=== PATIENT | female | born 1985 | race African-American/Black ===

== ENCOUNTER 2016-04-07 19:52 | Emergency (ER) | payer OTHER ==
[~2016-04-07] VITALS: Ht 165.1 cm; Wt 131.5 kg
[~2016-04-07 19:52] MED LIST: ANTIVERT25 MG PO; ATARAX,VISTARIL25 MG PO; ATENOLOL50 MG PO; CIPRO500 MG PO; CLEOCIN300 MG PO; CLINDAMYCIN HC300 MG PO; DICLEGIS DR 101 EACH PO; DOCUSATE SODIU100 MG PO; ELIMITE 5% CREA60 GM TP; ENDOCET 5-3251 EACH PO; FORTAMET1000 M1 PO; HAIR, SKIN & N1 EAC1 PO; HUMALOG100 UNIT/2 SC; HUMULIN N100 UNIT/2 SC; HYDROCHLOROTH12.5 M3 PO; IBUPROFEN800 MG PO; KEFLEX500 MG PO; LABETALOL HCL200 MG PO; LABETALOL HCL300 MG PO; LEVAQUIN250 MG PO; LORTAB 5-325 M1 EACH PO; MACROBID100 MG PO; METFORMIN HCL1000 MG PO; METFORMIN HCL500 M1 PO; METHYLDOPA500 MG PO; MICROZIDE12.5 M1 PO; NORCO 5/3251 TABLET PO; NOVOLIN N100 UNITS/ SC; NOVOLIN N100 UNITS/ SQ; NOVOLOG 10100 UNITS/ SC; NOVOLOG PE100 UNITS/ SC; PRENATAL TABLE1 EAC3 PO; PROAIR HFA8.5 GM IH; PROMETHAZINE HC25 M1 PO; PROVENTIL HFA6.7 GM IH; PROVENTIL2.5 MG/3 M IH; REGLAN5 MG PO; TENORMIN50 MG PO; UNISOM SLEEP AI25 MG PO; VENTOLIN HFA18 GM IH; VITAMIN B-625 MG PO; ZITHROMAX Z-PA250 MG PO; ZOFRAN ODT4 MG PO; ZOFRAN4 MG PO
[2016-04-07] MEDS ORDERED: ATIVAN1 MG PO (20:36)
[2016-04-07 21:28] VITALS: BP 165/98
== END 2016-04-07 21:29 | disposition home or self-care (01) ==
LOC: EME 19:52
DX: F41.9 Anxiety disorder, unspecified (principal); F43.0 Acute stress reaction; I10 Essential (primary) hypertension; E11.9 Type 2 diabetes mellitus without complications
CPT/HCPCS: 99281; 99283

== ENCOUNTER 2016-04-29 23:46 | Emergency (ER) | payer OTHER ==
[~2016-04-29] VITALS: Ht 165.1 cm; Wt 135.2 kg
[~2016-04-29 23:46] MED LIST changes: +ATIVAN1 MG PO
[2016-04-30 00:31] LABS: HEMATOCRIT 38.6 % (36.0-46.0); MCHC 33.7 G/DL (30.0-36.0); MCV 88.9 FL (83-99); MEAN PLAT.VOLUME 10.5 uM^3 (9.5-12.4); PLATELET COUNT 259 K/uL (156-360); RBC DIS.WIDTH-CV 13.6 % (11.8-14.6); RED BLOOD COUNT 4.34 M/uL (3.80-5.20); WHITE BLOOD COUNT 14.9 K/uL (4.1-10.2)
[2016-04-30 00:35] LABS: EOSINOPHIL (%) 0.7 % (0-5); EOSINOPHIL COUNT 0.1 K/uL (0-0.3); IMMATURE GRANULOCYTE (%) 0.3 % (0.0-0.7); IMMATURE GRANULOCYTE COUNT 0.4 K/uL; LYMPHOCYTE COUNT 4.7 K/uL (1.0-2.8); MONOCYTE (%) 6.7 % (3-12); NEUTROPHIL (%) 60.9 % (45-76); NEUTROPHIL COUNT 9.1 K/uL (1.8-6.4)
[2016-04-30 00:48] LABS: CHLORIDE 104 mEq/L (99-109); POTASSIUM 3.8 mEq/L (3.7-5.4); SODIUM 138 mEq/L (136-147)
[2016-04-30 00:50] LABS: GLUCOSE 176 mg/dL (70-99)
[2016-04-30 00:51] LABS: ANION GAP 11 MEQ/L (2-14)
[2016-04-30 00:52] LABS: TOTAL BILIRUBIN 0.8 mg/dL (0.0-1.0)
[2016-04-30 00:53] LABS: ALKALINE PHOSPHATASE 90 IU/L (3-129)
[2016-04-30 00:54] LABS: GFR ESTIMATE (CALCULATED) > 59 mL/min/
[2016-04-30 00:55] LABS: UREA NITROGEN (BUN) 11 mg/dL (9-23)
[2016-04-30 00:57] LABS: CREATINE KINASE 321 IU/L (1-294); LIPASE 26 U/L (1.0-51.0); TROP-I INTERPRETATION NEGATIVE; TROPONIN-I < 0.01 ng/mL (0.0-0.30)
[2016-04-30 01:41] LABS: C DIFF TOXIN NEGATIVE (NEGATIVE)
[2016-04-30 01:44] LABS: PROBE CHECK PASS; SPECIMEN PROCESSING CONTROL PASS
[2016-04-30 01:59] LABS: ADD MIUA? YES; BILIRUBIN NEGATIVE; BLOOD MODERATE; COLOR YELLOW ((YELLOW)); GLUCOSE (STRIP) NEGATIVE; KETONES NEGATIVE; LEUKOCYTES TRACE; NITRITE NEGATIVE; PROTEIN (STRIP) 30; UROBILINOGEN 0.2 MG/DL (0.2-1.0)
[2016-04-30 02:17] LABS: BACTERIA 1+ /HPF; EPITHELIAL CELLS 1+ /HPF; MUCUS NONE SEEN /LPF
[2016-04-30 02:18] LABS: CALCIUM OXALATE CRYSTALS 2+ /HPF; CASTS PRESENT /LPF; CRYSTALS PRESENT; HYALINE CASTS RARE /LPF
[2016-04-30] MEDS ORDERED: FLAGYL500 MG PO (02:18)
[2016-04-30] MEDS ORDERED: CIPRO500 MG PO (02:18)
[2016-04-30] MEDS ORDERED: BENTYL20 MG PO (02:21)
[2016-04-30] MEDS ORDERED: XANAX0.5 MG PO (02:25)
[2016-04-30 02:45] VITALS: BP 128/74
== END 2016-04-30 03:11 | disposition home or self-care (01) ==
LOC: EME 23:46
PROVIDERS: Emergency Medicine
DX: K52.9 Noninfective gastroenteritis and colitis, unspecified (principal); N39.0 Urinary tract infection, site not specified; R19.7 Diarrhea, unspecified; E86.0 Dehydration; F41.1 Generalized anxiety disorder; E11.9 Type 2 diabetes mellitus without complications; I10 Essential (primary) hypertension; E78.5 Hyperlipidemia, unspecified; Z79.84 Long term (current) use of oral hypoglycemic drugs; Z88.0 Allergy status to penicillin; Z91.040 Latex allergy status
CPT/HCPCS: 71010; 74176; 80053; 81003; 82550; 83690; 84484; 85025; 87493; 87506; 93005; 99281; 99285; J2405; J3010; J7030; S0028

== ENCOUNTER 2016-06-04 13:49 | Emergency (ER) | payer OTHER ==
[~2016-06-04] VITALS: Ht 165.1 cm; Wt 134.9 kg
[~2016-06-04 13:49] MED LIST changes: +BENTYL20 MG PO; +FLAGYL500 MG PO; +XANAX0.5 MG PO
[2016-06-04 15:13] LABS: HEMATOCRIT 39.5 % (36.0-46.0); MCH 29.5 PG (29.0-34.0); MCHC 32.7 G/DL (30.0-36.0); MCV 90.2 FL (83-99); MEAN PLAT.VOLUME 10.2 uM^3 (9.5-12.4); PLATELET COUNT 281 K/uL (156-360); RBC DIS.WIDTH-SD 42.8 % (39-53); RED BLOOD COUNT 4.38 M/uL (3.80-5.20); WHITE BLOOD COUNT 12.6 K/uL (4.1-10.2)
[2016-06-04 15:26] LABS: CHLORIDE 104 mEq/L (99-109); POTASSIUM 3.9 mEq/L (3.7-5.4); SODIUM 137 mEq/L (136-147)
[2016-06-04 15:28] LABS: GLUCOSE 131 mg/dL (70-99)
[2016-06-04 15:29] LABS: ANION GAP 8 MEQ/L (2-14)
[2016-06-04 15:30] LABS: TOTAL BILIRUBIN 0.8 mg/dL (0.0-1.0)
[2016-06-04 15:31] LABS: ALKALINE PHOSPHATASE 69 IU/L (3-129)
[2016-06-04 15:32] LABS: GFR ESTIMATE (CALCULATED) > 59 mL/min/
[2016-06-04 15:33] LABS: UREA NITROGEN (BUN) 10 mg/dL (9-23)
[2016-06-04 15:40] LABS: QUANTITATIVE HCG < 4.0 MIU/ML
[2016-06-04 15:52] LABS: ADD MIUA? YES; BILIRUBIN NEGATIVE; BLOOD LARGE; COLOR YELLOW ((YELLOW)); GLUCOSE (STRIP) NEGATIVE; KETONES NEGATIVE; LEUKOCYTES TRACE; NITRITE NEGATIVE; PROTEIN (STRIP) 30; SPECIFIC GRAVITY 1.023 (1.000-1.030); UROBILINOGEN 0.2 MG/DL (0.2-1.0)
[2016-06-04 16:00] LABS: BACTERIA NONE SEEN /HPF; EPITHELIAL CELLS 1+ /HPF; MUCUS TRACE /LPF; RED BLOOD CELLS 30-40 /HPF (0-5)
[2016-06-04] MEDS ORDERED: MECLIZINE HCL25 MG PO (16:42)
[2016-06-04] MEDS ORDERED: MOTRIN600 MG PO (16:42)
[2016-06-04 17:04] VITALS: BP 148/80
== END 2016-06-04 17:05 | disposition home or self-care (01) ==
LOC: EME 13:49
PROVIDERS: Nurse Practitioner Family
DX: R42 Dizziness and giddiness (principal); R55 Syncope and collapse; E11.65 Type 2 diabetes mellitus with hyperglycemia; F43.9 Reaction to severe stress, unspecified; E78.5 Hyperlipidemia, unspecified; I10 Essential (primary) hypertension; Z79.84 Long term (current) use of oral hypoglycemic drugs
CPT/HCPCS: 80053; 81003; 84702; 85027; 93005; 99281; 99284

== ENCOUNTER 2016-07-01 15:18 | Emergency (ER) | payer OTHER ==
[~2016-07-01] VITALS: Ht 165.1 cm; Wt 137.6 kg
[~2016-07-01 15:18] MED LIST changes: +MECLIZINE HCL25 MG PO; +MOTRIN600 MG PO
[2016-07-01 16:30] LABS: EOSINOPHIL (%) 0.5 % (0-5); EOSINOPHIL COUNT 0.1 K/uL (0-0.3); HEMATOCRIT 35.6 % (36.0-46.0); IMMATURE GRANULOCYTE (%) 0.4 % (0.0-0.7); IMMATURE GRANULOCYTE COUNT 0.1 K/uL; INSTRUMENT ABS NEUTROPHIL CT 8.7 K/uL; LYMPHOCYTE COUNT 2.2 K/uL (1.0-2.8); MCH 29.8 PG (29.0-34.0); MCHC 33.4 G/DL (30.0-36.0); MCV 89.2 FL (83-99); MEAN PLAT.VOLUME 10.4 uM^3 (9.5-12.4); MONOCYTE (%) 5.7 % (3-12); MONOCYTE COUNT 0.7 K/uL (0-0.8); NEUTROPHIL (%) 74.7 % (45-76); NEUTROPHIL COUNT 8.7 K/uL (1.8-6.4); PLATELET COUNT 234 K/uL (156-360); RBC DIS.WIDTH-CV 12.9 % (11.8-14.6); RED BLOOD COUNT 3.99 M/uL (3.80-5.20); WHITE BLOOD COUNT 11.7 K/uL (4.1-10.2)
[2016-07-01 16:41] LABS: CHLORIDE 107 mEq/L (99-109); POTASSIUM 3.9 mEq/L (3.7-5.4); SODIUM 139 mEq/L (136-147)
[2016-07-01 16:43] LABS: GLUCOSE 99 mg/dL (70-99)
[2016-07-01 16:44] LABS: ANION GAP 11 MEQ/L (2-14)
[2016-07-01 16:45] LABS: TOTAL BILIRUBIN 0.5 mg/dL (0.0-1.0)
[2016-07-01 16:46] LABS: ALKALINE PHOSPHATASE 71 IU/L (3-129)
[2016-07-01 16:47] LABS: GFR ESTIMATE (CALCULATED) > 59 mL/min/
[2016-07-01 16:48] LABS: UREA NITROGEN (BUN) 8 mg/dL (9-23)
[2016-07-01 16:52] LABS: TROP-I INTERPRETATION NEGATIVE; TROPONIN-I < 0.01 ng/mL (0.0-0.30)
[2016-07-01 16:56] LABS: QUANTITATIVE HCG < 4.0 MIU/ML
[2016-07-01 18:31] LABS: ADD MIUA? YES; BILIRUBIN NEGATIVE; BLOOD LARGE; COLOR YELLOW ((YELLOW)); GLUCOSE (STRIP) NEGATIVE; KETONES NEGATIVE; LEUKOCYTES NEGATIVE; NITRITE NEGATIVE; PROTEIN (STRIP) 30; SPECIFIC GRAVITY 1.017 (1.000-1.030); UROBILINOGEN 0.2 MG/DL (0.2-1.0)
[2016-07-01 19:03] LABS: BACTERIA RARE /HPF; EPITHELIAL CELLS 2+ /HPF; MUCUS TRACE /LPF; RED BLOOD CELLS 0-5 /HPF (0-5)
[2016-07-01] MEDS ORDERED: ATIVAN0.5 MG PO (19:41)
[2016-07-01] MEDS ORDERED: CIPRO500 MG PO (19:41)
[2016-07-01 20:02] VITALS: BP 136/87
== END 2016-07-01 20:03 | disposition home or self-care (01) ==
LOC: EME 15:18
PROVIDERS: Emergency Medicine
DX: N39.0 Urinary tract infection, site not specified (principal); E86.0 Dehydration; F41.9 Anxiety disorder, unspecified; J45.909 Unspecified asthma, uncomplicated; E78.5 Hyperlipidemia, unspecified; I10 Essential (primary) hypertension; E11.9 Type 2 diabetes mellitus without complications; Z79.84 Long term (current) use of oral hypoglycemic drugs
CPT/HCPCS: 80053; 81003; 84484; 84702; 85025; 93005; 99281; 99285; J7030

== ENCOUNTER 2016-08-22 03:09 | Emergency (ER) | payer OTHER ==
[~2016-08-22] VITALS: Ht 165.1 cm; Wt 135.0 kg
[~2016-08-22 03:09] MED LIST changes: +ATIVAN0.5 MG PO
[2016-08-22 03:46] LABS: ADD MIUA? YES; BILIRUBIN NEGATIVE; BLOOD NEGATIVE; COLOR YELLOW ((YELLOW)); GLUCOSE (STRIP) NEGATIVE; KETONES NEGATIVE; LEUKOCYTES TRACE; NITRITE NEGATIVE; PROTEIN (STRIP) 100; SPECIFIC GRAVITY 1.028 (1.000-1.030); UROBILINOGEN 0.2 MG/DL (0.2-1.0)
[2016-08-22 04:06] LABS: BACTERIA NONE SEEN /HPF; EPITHELIAL CELLS 1+ /HPF; MUCUS 1+ /LPF; RED BLOOD CELLS 0-5 /HPF (0-5); UCUL ADDED? NO; WHITE BLOOD CELLS 15-20 /HPF (0-5)
[2016-08-22 04:07] LABS: HEMATOCRIT 36.9 % (36.0-46.0); MCH 29.6 PG (29.0-34.0); MCHC 33.1 G/DL (30.0-36.0); MCV 89.6 FL (83-99); MEAN PLAT.VOLUME 10.1 uM^3 (9.5-12.4); PLATELET COUNT 254 K/uL (156-360); RBC DIS.WIDTH-CV 13.2 % (11.8-14.6); RBC DIS.WIDTH-SD 43.4 % (39-53); RED BLOOD COUNT 4.12 M/uL (3.80-5.20); WHITE BLOOD COUNT 12.8 K/uL (4.1-10.2)
[2016-08-22 04:19] LABS: CHLORIDE 105 mEq/L (99-109); POTASSIUM 3.8 mEq/L (3.7-5.4); SODIUM 138 mEq/L (136-147)
[2016-08-22 04:21] LABS: GLUCOSE 138 mg/dL (70-99)
[2016-08-22 04:22] LABS: ANION GAP 9 MEQ/L (2-14)
[2016-08-22 04:23] LABS: TOTAL BILIRUBIN 0.5 mg/dL (0.0-1.0)
[2016-08-22 04:24] LABS: ALKALINE PHOSPHATASE 68 IU/L (3-129)
[2016-08-22 04:25] LABS: GFR ESTIMATE (CALCULATED) > 59 mL/min/
[2016-08-22 04:26] LABS: UREA NITROGEN (BUN) 8 mg/dL (9-23)
[2016-08-22 04:28] LABS: LIPASE 42 U/L (1.0-51.0)
[2016-08-22 04:34] LABS: QUANTITATIVE HCG < 4.0 MIU/ML
[2016-08-22] MEDS ORDERED: MACROBID100 MG PO (04:56)
[2016-08-22] MEDS ORDERED: ZOFRAN ODT4 MG PO (04:56)
[2016-08-22] MEDS ORDERED: NORCO 5/3251 TABLET PO (05:11)
[2016-08-22 05:16] VITALS: BP 138/98
== END 2016-08-22 05:19 | disposition home or self-care (01) ==
LOC: EME 03:09
PROVIDERS: Physician Assistant
DX: N39.0 Urinary tract infection, site not specified (principal); R19.7 Diarrhea, unspecified; N20.0 Calculus of kidney; K76.0 Fatty (change of) liver, not elsewhere classified; M51.26 Other intervertebral disc displacement, lumbar region; I10 Essential (primary) hypertension; E11.9 Type 2 diabetes mellitus without complications; Z79.84 Long term (current) use of oral hypoglycemic drugs; Z88.0 Allergy status to penicillin
CPT/HCPCS: 74176; 80053; 81003; 83690; 84702; 85027; 99281; 99285; J2270; J2405; J7030

== ENCOUNTER 2016-10-03 23:42 | Emergency (ER) | payer OTHER ==
[~2016-10-03] VITALS: Ht 165.1 cm; Wt 134.1 kg
[2016-10-04] MEDS ORDERED: HYDROCHLOROTH12.5 M3 PO (00:46)
[2016-10-04] MEDS ORDERED: JANUVIA100 MG PO (00:46)
[2016-10-04] MEDS ORDERED: ATARAX,VISTARIL25 MG PO (00:48)
[2016-10-04] MEDS ORDERED: PERCOCET 5/31 TABLET PO (01:45)
[2016-10-04] MEDS ORDERED: NAPROSYN500 MG PO (01:45)
[2016-10-04 02:29] VITALS: BP 128/89
== END 2016-10-04 02:32 | disposition home or self-care (01) ==
LOC: EME 23:42
DX: S93.401A Sprain of unspecified ligament of right ankle, initial encounter (principal); W10.9XXA Fall (on) (from) unspecified stairs and steps, initial encounter; I10 Essential (primary) hypertension; J45.909 Unspecified asthma, uncomplicated; E78.5 Hyperlipidemia, unspecified; E11.9 Type 2 diabetes mellitus without complications; Z79.84 Long term (current) use of oral hypoglycemic drugs; Z88.0 Allergy status to penicillin
CPT/HCPCS: 73610; 99281; 99283

== ENCOUNTER 2016-11-08 11:03 | Emergency (ER) | payer OTHER ==
[~2016-11-08] VITALS: Ht 165.1 cm; Wt 132.8 kg
[~2016-11-08 11:03] MED LIST changes: +JANUVIA100 MG PO; +NAPROSYN500 MG PO; +PERCOCET 5/31 TABLET PO
[2016-11-08 13:33] VITALS: BP 153/111
== END 2016-11-08 13:34 | disposition home or self-care (01) ==
LOC: EME 11:03
DX: R21 Rash and other nonspecific skin eruption (principal); L29.9 Pruritus, unspecified; J02.9 Acute pharyngitis, unspecified; I10 Essential (primary) hypertension
CPT/HCPCS: 99281; 99283

== ENCOUNTER 2017-03-29 19:11 | Emergency (ER) | payer OTHER ==
[~2017-03-29] VITALS: Ht 165.1 cm; Wt 136.2 kg
[2017-03-29 20:14] LABS: APPEARANCE CLOUDY ((CLEAR)); BILIRUBIN NEGATIVE; BLOOD NEGATIVE; COLOR YELLOW ((YELLOW)); GLUCOSE (STRIP) NEGATIVE; KETONES NEGATIVE; LEUKOCYTES TRACE; NITRITE NEGATIVE; PROTEIN (STRIP) 30; SPECIFIC GRAVITY 1.023 (1.000-1.030); UROBILINOGEN 0.2 MG/DL (0.2-1.0)
[2017-03-29 20:16] LABS: HEMATOCRIT 39.4 % (36.0-46.0); HEMOGLOBIN 13.5 G/DL (11.9-15.5); MCH 30.5 PG (29.0-34.0); MCHC 34.3 G/DL (30.0-36.0); MCV 89.1 FL (83-99); PLATELET COUNT 258 K/uL (156-360); RBC DIS.WIDTH-CV 12.8 % (11.8-14.6); RBC DIS.WIDTH-SD 41.8 % (39-53); RED BLOOD COUNT 4.42 M/uL (3.80-5.20); WHITE BLOOD COUNT 14.5 K/uL (4.1-10.2)
[2017-03-29 20:30] LABS: ALBUMIN 4.3 g/dL (3.2-4.8); CHLORIDE 106 mEq/L (99-109); POTASSIUM 4.1 mEq/L (3.7-5.4); SODIUM 138 mEq/L (136-147)
[2017-03-29 20:32] LABS: GLUCOSE 107 mg/dL (70-99); TOTAL PROTEIN 8.4 g/dL (6.4-8.3)
[2017-03-29 20:34] LABS: TOTAL BILIRUBIN 0.9 mg/dL (0.0-1.0)
[2017-03-29 20:36] LABS: ALKALINE PHOSPHATASE 77 IU/L (3-129); CREATININE 0.8 mg/dL (0.6-1.3); GFR ESTIMATE (CALCULATED) > 59 mL/min/
[2017-03-29 20:37] LABS: UREA NITROGEN (BUN) 9 mg/dL (9-23)
[2017-03-29 20:38] LABS: AST (GOT) 24 IU/L (2-34)
[2017-03-29 20:39] LABS: ALT (GPT) 27 IU/L (3-49)
[2017-03-29 20:48] LABS: QUANTITATIVE HCG < 4.0 MIU/ML
[2017-03-29 20:53] LABS: BACTERIA RARE /HPF; EPITHELIAL CELLS 4+ /HPF; MUCUS 1+ /LPF; RED BLOOD CELLS 0-5 /HPF (0-5); UCUL ADDED? YES
[2017-03-29] MEDS ORDERED: ZOFRAN ODT4 MG PO (22:55)
[2017-03-29 22:59] VITALS: BP 142/113
== END 2017-03-29 23:05 | disposition home or self-care (01) ==
LOC: EME 19:11
DX: R10.9 Unspecified abdominal pain (principal); E11.9 Type 2 diabetes mellitus without complications; Z79.84 Long term (current) use of oral hypoglycemic drugs; E78.5 Hyperlipidemia, unspecified; I10 Essential (primary) hypertension; J45.909 Unspecified asthma, uncomplicated; Z88.0 Allergy status to penicillin; Z88.1 Allergy status to other antibiotic agents; Z91.040 Latex allergy status
CPT/HCPCS: 80053; 81003; 84702; 85027; 87086 GA; 99281; 99284

== ENCOUNTER 2017-07-12 17:22 | Emergency (ER) | payer OTHER ==
[~2017-07-12] VITALS: Ht 165.1 cm; Wt 136.5 kg
[2017-07-12 19:26] LABS: HEMATOCRIT 42.5 % (36.0-46.0); HEMOGLOBIN 14.6 G/DL (11.9-15.5); MCH 30.8 PG (29.0-34.0); MCHC 34.4 G/DL (30.0-36.0); MCV 89.7 FL (83-99); PLATELET COUNT 279 K/uL (156-360); RBC DIS.WIDTH-CV 12.7 % (11.8-14.6); RBC DIS.WIDTH-SD 41.5 % (39-53); RED BLOOD COUNT 4.74 M/uL (3.80-5.20); WHITE BLOOD COUNT 15.2 K/uL (4.1-10.2)
[2017-07-12 19:35] LABS: ALBUMIN 4.3 g/dL (3.2-4.8); CHLORIDE 103 mEq/L (99-109); POTASSIUM 3.9 mEq/L (3.7-5.4); SODIUM 140 mEq/L (136-147)
[2017-07-12 19:37] LABS: GLUCOSE 170 mg/dL (70-99)
[2017-07-12 19:39] LABS: TOTAL BILIRUBIN 0.6 mg/dL (0.0-1.0)
[2017-07-12 19:41] LABS: ALKALINE PHOSPHATASE 92 IU/L (3-129); CREATININE 0.9 mg/dL (0.6-1.3); GFR ESTIMATE (CALCULATED) > 59 mL/min/
[2017-07-12 19:42] LABS: AST (GOT) 31 IU/L (2-34); UREA NITROGEN (BUN) 12 mg/dL (9-23)
[2017-07-12 19:43] LABS: DIRECT BILIRUBIN 0.2 mg/dL (0.0-0.3)
[2017-07-12 19:44] LABS: ALT (GPT) 43 IU/L (3-49); LIPASE 30 U/L (1.0-51.0)
[2017-07-12 19:55] LABS: QUANTITATIVE HCG < 4.0 MIU/ML
[2017-07-12 20:01] LABS: APPEARANCE SL.HAZY ((CLEAR)); BILIRUBIN NEGATIVE; BLOOD LARGE; COLOR YELLOW ((YELLOW)); GLUCOSE (STRIP) >=500; KETONES NEGATIVE; LEUKOCYTES SMALL; NITRITE NEGATIVE; PROTEIN (STRIP) 30; SPECIFIC GRAVITY 1.029 (1.000-1.030); UROBILINOGEN 0.2 MG/DL (0.2-1.0)
[2017-07-12 20:11] LABS: BACTERIA NONE SEEN /HPF; EPITHELIAL CELLS 1+ /HPF; MUCUS TRACE /LPF; RED BLOOD CELLS TNTC /HPF (0-5)
[2017-07-12] MEDS ORDERED: DIFLUCAN150 MG PO (20:35)
[2017-07-12] MEDS ORDERED: KEFLEX500 MG PO (20:36)
[2017-07-12] MEDS ORDERED: ZOFRAN ODT8 MG PO (20:36)
[2017-07-12] MEDS ORDERED: BENTYL20 MG PO (20:36)
[2017-07-12 22:52] VITALS: BP 131/84
[2017-07-13 11:55] LABS: STOOL OCCULT BLD 1ST SPECIMEN NEGATIVE
== END 2017-07-12 22:55 | disposition home or self-care (01) ==
LOC: EXP 17:22 → EME 17:22 → EXP 22:55
PROVIDERS: Physician Assistant
DX: K59.00 Constipation, unspecified (principal); N39.0 Urinary tract infection, site not specified; B37.3 Candidiasis of vulva and vagina; E11.65 Type 2 diabetes mellitus with hyperglycemia; E86.0 Dehydration; R11.0 Nausea; Z79.84 Long term (current) use of oral hypoglycemic drugs; I10 Essential (primary) hypertension; Z88.1 Allergy status to other antibiotic agents; Z88.0 Allergy status to penicillin
CPT/HCPCS: 74018; 80048; 80076; 81003; 82272; 83690; 84702; 85027; 87077; 87086; 99281; 99284

== ENCOUNTER 2017-09-04 21:38 | Emergency (ER) | payer OTHER ==
[~2017-09-04] VITALS: Ht 165.1 cm; Wt 132.7 kg
[~2017-09-04 21:38] MED LIST changes: +DIFLUCAN150 MG PO; +ZOFRAN ODT8 MG PO
[2017-09-04 21:41] VITALS: BP 159/118
[2017-09-04 22:02] LABS: APPEARANCE SL.HAZY ((CLEAR)); BILIRUBIN NEGATIVE; BLOOD LARGE; COLOR YELLOW ((YELLOW)); GLUCOSE (STRIP) >=500; KETONES NEGATIVE; LEUKOCYTES LARGE; NITRITE NEGATIVE; PROTEIN (STRIP) 100; SPECIFIC GRAVITY 1.029 (1.000-1.030); UROBILINOGEN 0.2 MG/DL (0.2-1.0)
[2017-09-04 22:03] LABS: HEMATOCRIT 45.1 % (36.0-46.0); HEMOGLOBIN 15.2 G/DL (11.9-15.5); MCH 29.9 PG (29.0-34.0); MCHC 33.7 G/DL (30.0-36.0); MCV 88.6 FL (83-99); PLATELET COUNT 278 K/uL (156-360); RBC DIS.WIDTH-CV 12.8 % (11.8-14.6); RBC DIS.WIDTH-SD 41.4 % (39-53); RED BLOOD COUNT 5.09 M/uL (3.80-5.20); WHITE BLOOD COUNT 15.6 K/uL (4.1-10.2)
[2017-09-04 22:08] LABS: BACTERIA RARE /HPF; EPITHELIAL CELLS RARE /HPF; MUCUS NONE SEEN /LPF; RED BLOOD CELLS TNTC /HPF (0-5); UCUL ADDED? YES; WHITE BLOOD CELLS TNTC /HPF (0-5)
[2017-09-04 22:12] LABS: SOURCE URINE
[2017-09-04 22:14] LABS: CHLORIDE 102 mEq/L (99-109); POTASSIUM 3.9 mEq/L (3.7-5.4); SODIUM 138 mEq/L (136-147)
[2017-09-04 22:17] LABS: TOTAL PROTEIN 9.4 g/dL (6.4-8.3)
[2017-09-04] MEDS ORDERED: BACTRIM,SEPT1 TABLET PO (22:17)
[2017-09-04] MEDS ORDERED: MOTRIN600 MG PO (22:17)
[2017-09-04 22:22] LABS: AST (GOT) 19 IU/L (2-34)
[2017-09-04 22:23] LABS: ALBUMIN 4.3 g/dL (3.2-4.8)
[2017-09-04 22:26] LABS: GLUCOSE 177 mg/dL (70-99)
[2017-09-04 22:29] LABS: ALKALINE PHOSPHATASE 99 IU/L (3-129); CREATININE 0.9 mg/dL (0.6-1.3); GFR ESTIMATE (CALCULATED) > 59 mL/min/; QUANTITATIVE HCG < 4.0 MIU/ML
[2017-09-04 22:30] LABS: UREA NITROGEN (BUN) 7 mg/dL (9-23)
[2017-09-04 22:32] LABS: ALT (GPT) 30 IU/L (3-49)
[2017-09-07 15:01] LABS: CHLAMYDIA TRACHOMATIS NEGATIVE; NEISSERIA GONORRHOEAE NEGATIVE
== END 2017-09-04 22:31 | disposition home or self-care (01) ==
LOC: EME 21:38
DX: N39.0 Urinary tract infection, site not specified (principal); E11.9 Type 2 diabetes mellitus without complications; Z79.84 Long term (current) use of oral hypoglycemic drugs; E78.5 Hyperlipidemia, unspecified; I10 Essential (primary) hypertension; J45.909 Unspecified asthma, uncomplicated; Z88.1 Allergy status to other antibiotic agents; Z88.0 Allergy status to penicillin
CPT/HCPCS: 80053; 81003; 84702; 85027; 87077; 87086 GA; 87186; 87491; 87591; 99281; 99284